=== PATIENT | female | born 1960 ===

== ENCOUNTER 2017-09-12 10:29 | Emergency (ER) | payer OTHER ==
[2017-09-12 10:41] VITALS: BP 145/83; PULSE 67; RESP 20; TEMP 98.6; O2SAT 100
--- NOTE | 2017-09-12 11:12 | ED PDOC ---
HPI: Psych/Substance Abuse Time Seen by Provider: 09/12/17 11:03 Chief Complaint (Nursing): Anxiety History Per: Patient Additional Complaint(s): Referred by PMD for anxiety. Pt states she has been under alot of stress, Txed by PMD for stress, but pt states she has been drinking recently and PMD does not want to Rx benzodiazepines because of drinking. Denies SI/HI. Drinks bottle of wine 2-3 times/week. Last drank Sat nite. Past Medical History Vital Signs: Last Vital Signs Temp 98.6 F 09/12/17 10:40 Pulse 67 09/12/17 10:40 Resp 20 09/12/17 10:40 BP 145/83 09/12/17 10:40 Pulse Ox 100 09/12/17 10:40 - Medical History PMH: Anxiety - Family History Family History: States: Unknown Family Hx - Allergies Allergies/Adverse Reactions: Allergies Allergy/AdvReac Type Severity Reaction Status Date / Time No Known Allergies Allergy Verified 09/12/17 11:08 Review of Systems Psych: Positive for: Anxiety. Negative for: Suicidal ideation, Withdrawal Physical Exam - Physical Exam Appears: Positive for: Non-toxic, No Acute Distress Skin: Positive for: Normal Color, Warm, DRY Cardiovascular/Chest: Positive for: Regular Rate, Rhythm Respiratory: Positive for: CNT, Normal Breath Sounds Neurologic/Psych: Positive for: Alert, Oriented, Other (No tremors) - ECG O2 Sat by Pulse Oximetry: 100 Disposition - Clinical Impression Clinical Impression: Anxiety - Patient ED Disposition Is Patient to be Admitted: No Counseled Patient/Family Regarding: Diagnosis, Need For Followup - Disposition Referrals: Community Mental Health [Outside] Disposition: Routine/Home Disposition Time: 13:47 Condition: FAIR Instructions: Anxiety, Adult (DC) Forms: [employer] (Gabonese)
[2017-09-12 13:28] LABS: BARBITURATES, UR NEGATIVE (NEGATIVE); BENZODIAZEPINES, UR NEGATIVE (NEGATIVE); OPIATES, UR NEGATIVE (NEGATIVE); PHENCYCLIDINE, UR NEGATIVE (NEGATIVE)
== END 2017-09-12 13:54 | disposition home or self-care (01) ==
LOC: H.ER 10:29
DX: F41.9 Anxiety disorder, unspecified (principal)